=== PATIENT | female | born 1980 | race Caucasian/White ===

== ENCOUNTER 2022-12-30 05:30 | Inpatient (IN) | payer OTHER ==
[2022-12-30] MEDS ORDERED: Ibuprofen 800 MG TAB PO PRN (06:02)
[2022-12-30] MEDS ORDERED: Ondansetron PF 4 MG/2 ML Vial IVP PRN ×2 (06:02→21:26)
[2022-12-30] MEDS ORDERED: Butorphanol Tartrate 1 MG/ML VIAL SLOW IVP PRN (06:02)
[2022-12-30] MEDS ORDERED: Carboprost 250 MCG/ML AMP IM PRN (06:02)
[2022-12-30] MEDS ORDERED: hydrALAZINE 20 MG/ML VIAL SLOW IVP PRN (06:02)
[2022-12-30] MEDS ORDERED: Tranexamic Acid 1,000 MG/10 ML VIAL IVP PRN (06:02)
[2022-12-30] MEDS ORDERED: HYDROcodone/Acetaminophen 5/325 mg Tablet PO PRN ×2 (06:02)
[2022-12-30] MEDS ORDERED: Misoprostol 200 MCG TAB PR PRN (06:02)
[2022-12-30] MEDS ORDERED: Acetaminophen 500 MG TAB PO PRN (06:02)
[2022-12-30] MEDS ORDERED: Promethazine HCl 25 MG/ML VIAL IM PRN ×2 (06:02→21:26)
[2022-12-30] MEDS ORDERED: Lidocaine 1% (PF) 30 ML VIAL SC PRN (06:02)
[2022-12-30] MEDS ORDERED: Fentanyl 100 MCG/2 ML VIAL SLOW IVP PRN (06:02)
[2022-12-30] MEDS ORDERED: Diphenoxylate HCl/Atropine Tablet PO PRN ×2 (06:02)
[2022-12-30] MEDS ORDERED: Misoprostol 100 MCG TAB VAG SCH (06:15)
[2022-12-30] MEDS ORDERED: Lactated Ringer's 1,000 ML IV SCH (06:15)
[2022-12-30] MEDS ORDERED: NS w/ Oxytocin 30 units 500 ML IV SCH ×3 (06:15)
[2022-12-30 08:42] VITALS: BMI 28.8
[2022-12-30 09:09] LABS: Hemoglobin 12.9 g/dL (12.0-15.5); Mean Corpuscular HGB CONC 34.2 g/dL (32.0-36.0); Mean Corpuscular Hemoglobin 32.3 pg (27.0-33.0); Mean Corpuscular Volume 94.5 fl (81.6-98.3); Mean Platelet Volume 11.6 fl (7.4-10.4); Platelet Count 202 10x3/uL (150-450); RBC Distribution Width 12.6 % (11.5-14.5); Red Blood Cell (RBC) Count 3.99 10x6/uL (3.90-5.03); White Blood Cell (WBC) Count 9.4 10x3/uL (3.5-10.5)
[2022-12-30] MEDS ORDERED: Misoprostol 100 MCG TAB ONE ×2 (09:18→12:50)
[2022-12-30 10:02] LABS: HBSAg Index 0.15 S/CO (0-0.99); Hep B Surf Ag - L&D Non-Reactive S/CO (NonReactive)
[2022-12-30 10:03] LABS: Syphilis Antibody Nonreactive (Nonreactive); Syphilis Antibody Index 0.05 S/CO (<1.00 Non-Reactive)
[2022-12-30] MEDS ORDERED: Fentanyl 2 mcg/Bup 0.1% Cadd 100 ML ONE (19:50)
[2022-12-30] MEDS ORDERED: Magnesium Sulfate 20 gm/500 ml 20 GM/500 ML BAG ONE (21:14)
[2022-12-30] MEDS ORDERED: Naloxone HCl 0.4 mg/ml Vial IVP PRN ×2 (21:26)
[2022-12-30] MEDS ORDERED: diphenhydrAMINE 50 MG/ML VIAL IVP PRN (21:26)
[2022-12-30] MEDS ORDERED: Lactated Ringer's 500 ML IV PRN (21:26)
[2022-12-30] MEDS ORDERED: ePHEDrine Sulfate 50 MG/10 ML VIAL SLOW IVP PRN (21:26)
[2022-12-30] MEDS ORDERED: Acetaminophen 325 MG TAB PO PRN (21:26)
[2022-12-30] MEDS ORDERED: Moisturizing Cream (Eucerin) 113 GM JAR TOP PRN (21:26)
[2022-12-30] MEDS ORDERED: Communication Order-Pharmacy FS SCH (21:30)
[2022-12-30] MEDS ORDERED: Fentanyl 2 mcg/Bupivacaine 0.1% Cassette 100 ML EPIDURAL SCH (21:30)
[2022-12-30] MEDS ORDERED: Misoprostol 200 MCG TAB ONE (23:54)
[2022-12-30] MEDS ORDERED: Carboprost 250 MCG/ML AMP ONE (23:54)
[2022-12-31] MEDS ORDERED: Ondansetron PF 4 MG/2 ML Vial IVP PRN ×2 (00:14→13:47)
[2022-12-31] MEDS ORDERED: Boostrix 0.5 ML (Tdap) VIAL (>/=7 yrs of age) IM ONE (00:14)
[2022-12-31] MEDS ORDERED: hydrALAZINE 20 MG/ML VIAL SLOW IVP PRN ×2 (00:14→13:47)
[2022-12-31] MEDS ORDERED: diphenhydrAMINE 25 MG CAP PO PRN ×2 (00:14→13:47)
[2022-12-31] MEDS ORDERED: Measles/Mumps/Rubella 10 MCG/0.5 ML VIAL SC ONE (00:14)
[2022-12-31] MEDS ORDERED: HYDROcodone/Acetaminophen 5/325 mg Tablet PO PRN ×4 (00:14→13:47)
[2022-12-31] MEDS ORDERED: Preparation H Ointment 28 GM TUBE PR PRN ×2 (00:14→13:47)
[2022-12-31] MEDS ORDERED: Milk Of Magnesia 30 ML UDCUP PO PRN ×2 (00:14→13:47)
[2022-12-31] MEDS ORDERED: Lanolin Ointment 7 GM TUBE TOP PRN ×2 (00:14→13:47)
[2022-12-31] MEDS ORDERED: Promethazine HCl 25 MG/ML VIAL IM PRN ×2 (00:14→13:47)
[2022-12-31] MEDS ORDERED: Zolpidem Tartrate 5 MG TAB PO PRN ×2 (00:14→13:47)
[2022-12-31] MEDS ORDERED: Benzocaine-Menthol 82.5 ML CAN TOP PRN ×2 (00:14→13:47)
[2022-12-31] MEDS ORDERED: Bisacodyl 10 MG SUPP PR PRN ×2 (00:14→13:47)
[2022-12-31] MEDS ORDERED: Varicella virus, LIVE 0.5 ML VIAL SC ONE (00:14)
[2022-12-31] MEDS ORDERED: NS w/ Oxytocin 30 units 500 ML IV SCH (00:15)
[2022-12-31 03:21] LABS: Mean Corpuscular Hemoglobin 32.9 pg (27.0-33.0); Mean Platelet Volume 11.6 fl (7.4-10.4); Platelet Count 164 10x3/uL (150-450); RBC Distribution Width 12.3 % (11.5-14.5); Red Blood Cell (RBC) Count 3.65 10x6/uL (3.90-5.03)
[2022-12-31] MEDS ORDERED: Ibuprofen 800 MG TAB PO SCH (06:00)
[2022-12-31] MEDS ORDERED: Magnesium Sulfate 20 gm/500 ml 20 GM/500 ML BAG ONE (06:24)
[2022-12-31] MEDS ORDERED: Ferrous Sulfate 325 MG TAB PO SCH (08:00)
[2022-12-31] MEDS ORDERED: Prenatal Vitamin 1 TAB PO SCH (09:00)
[2022-12-31] MEDS ORDERED: Docusate 100 MG CAP PO SCH (09:00)
[2022-12-31] MEDS: Ibuprofen 800 MG TAB PO SCH ×3 (15:40→22:59)
[2022-12-31] MEDS: Ferrous Sulfate 325 MG TAB PO SCH (15:50)
[2022-12-31] MEDS: Docusate 100 MG CAP PO SCH (22:02)
[2023-01-01] MEDS: Ibuprofen 800 MG TAB PO SCH ×2 (05:02→13:53)
[2023-01-01] MEDS: Docusate 100 MG CAP PO SCH (08:22)
[2023-01-01] MEDS: Ferrous Sulfate 325 MG TAB PO SCH ×2 (08:23→13:53)
[2023-01-01] MEDS ORDERED: Prenatal Vitamin 1 TAB PO SCH (09:00)
[2023-01-01 12:14] LABS: HIV (1/2) Antibody/Antigen Non-Reactive (NonReactive); HIV 1/2 INDEX 0.07 S/CO (<1.00)
[2023-01-01 16:58] VITALS: BP 137/69; TEMP 99
== END 2023-01-01 18:40 | disposition home or self-care (01) | DRG 807 ==
LOC: CSHLD 06:08 → CSHPP 12-31 15:05
PROVIDERS: ADMIT Obstetrics & Gynecology; ATTEND Obstetrics & Gynecology
PROC: 3E0P7VZ Introduction of Hormone into Female Reproductive, Via Natural or Artificial Opening (ICD-10-PCS; 2022-12-30)
PROC: 10E0XZZ Delivery of Products of Conception, External Approach (ICD-10-PCS; principal; 2022-12-31)
PROC: 0KQM0ZZ Repair Perineum Muscle, Open Approach (ICD-10-PCS; 2022-12-31)
DX: O13.4 Gestational [pregnancy-induced] hypertension without significant proteinuria, complicating childbirth (principal); Z37.0 Single live birth; Z3A.39 39 weeks gestation of pregnancy; O70.1 Second degree perineal laceration during delivery
CPT/HCPCS: 36415; 51702; 85027; 86780; 86850; 86900; 86901; 87340; 87389; J0360; J3475